=== PATIENT | female | born 1990 | race Caucasian/White ===

== ENCOUNTER 2017-01-19 22:24 | Outpatient (CLI) | payer OTHER ==
[~2017-01-19] VITALS: Ht 165.1 cm; Wt 107.3 kg
[~2017-01-19 22:24] MED LIST: IBUP-1542 PO; TRAM50TA2 PO
[2017-01-19 22:34] VITALS: Ht 165.1 cm; Wt 107.3 kg
[2017-01-19] MEDS ORDERED: PREN1TAB79 PO (22:37)
--- NOTE | 2017-01-19 23:35 | PN ---
Triage Information Date/Time Reason for visit: labor Weeks of Gestation 28 weeks and 3 days of gestation presents with contractions Patient reports recent intercourse Patient with history of one delivery at 30 weeks of gestation History of 1 full-term delivery History of SAB X one /Para 4 para 2 Diabetes: none Hypertention: none Objective Heart Rate: 140's Heart Rate Comments NST is reactive Contractions: None Results/Medications Imaging Results WNL Disposition: Discharge Assessment/Plan We will obtain cervical length and estimated weight UA and CBC We will obtain urine tox Prescription for Macrobid was given Patient to follow-up with [facility] in 2-3 days MARYJANE GAUTHIER MD Jan 19, 2017 23:35
[2017-01-20 00:28] LABS: BASOPHILS % 0.1 % (0.0-2.0); EOSINOPHILS # 0.1 10^3/ul (0.0-0.5); EOSINOPHILS % 1.2 % (0.0-7.0); HEMATOCRIT 31.8 % (37.0-47.0); HEMOGLOBIN 10.3 g/dl (12.0-16.0); LYMPHOCYTES # 2.2 10^3/ul (0.8-2.9); LYMPHOCYTES % 21.3 % (15.0-51.0); MEAN CORPUSCULAR HEMOGLOBIN 27.9 pg (29.0-33.0); MEAN CORPUSCULAR HGB CONC 32.4 g/dl (32.0-37.0); MEAN CORPUSCULAR VOLUME 86.2 fl (82.0-101.0); MEAN PLATELET VOLUME 10.8 fl (7.4-10.4); MONOCYTE # 0.7 10^3/ul (0.3-0.9); MONOCYTES % 6.4 % (0.0-11.0); NEUTROPHILS % 70.7 % (39.0-77.0); PLATELET COUNT 225 10^3/UL (140-415); RED BLOOD COUNT 3.69 10^6/ul (4.20-5.40); RED CELL DISTRIBUTION WIDTH 12.3 % (11.5-14.5); WHITE BLOOD COUNT 10.4 10^3/ul (4.8-10.8)
[2017-01-20 01:16] LABS: ADD UMIC YES; UR ASCORBIC ACID NEGATIVE (NEGATIVE); UR BACTERIA FEW /HPF (NONE SEEN); UR BILIRUBIN (Dip) NEGATIVE (NEGATIVE); UR BLOOD (Dip) NEGATIVE (NEGATIVE); UR CLARITY CLOUDY (CLEAR); UR COLOR YELLOW (YELLOW); UR GLUCOSE (Dip) NEGATIVE (NEGATIVE); UR KETONES (Dip) NEGATIVE (NEGATIVE); UR LEUKOCYTE ESTERASE (Dip) 3+ Leu/ul (NEGATIVE); UR MUCUS MANY /HPF (NONE SEEN); UR NITRITE (Dip) NEGATIVE (NEGATIVE); UR RBC 3 /HPF (0-5); UR SPECIFIC GRAVITY (Dip) 1.027 (1.003-1.030); UR SQUAMOUS EPITHELIAL CELL FEW /HPF (FEW); UR TOTAL PROTEIN (Dip) NEGATIVE (NEGATIVE); UR UROBILINOGEN (Dip) 2+ mg/dL (NEGATIVE)
--- NOTE | 2017-01-20 01:49 | TRIAGE ---
OB Triage Datetime Report Generated by CPN: 01/20/2017 01:49 Datetime: 01/20/2017 01:38 Stage of : OB Triage Datetime: 01/20/2017 00:42 Pain Assessment Pain Assessment Comments: pt. states her pain is 'a lot better' since drinking her first litre of water Datetime: 01/20/2017 00:38 Monitor Mode: External US Datetime: 01/20/2017 00:10 Stage of : OB Triage Datetime: 01/19/2017 23:30 Labor Evaluation Monitor Mode: External Pattern: Normal: <= 5 Contractions in 10 Minutes Contraction Comments: UNABLE TO RECONCILIATION MANAGER UC'S ON TOCO, BUT PT. STATES SHE STILL FEEL ABD DISCOMFORT Heart Rate FHR Baseline Rate: 150 FHR Baseline Changes: No Baseline Change Variability: Moderate 6-25 bpm Datetime: 01/19/2017 22:54 Contraction Comments: toco tested Datetime: 01/19/2017 22:52 Labor Evaluation Monitor Mode: Palpation Resting Tone [place]: Relaxed Contraction Comments: pt. stated she is currently having a uc, unable to palpate uc's abdominally Datetime: 01/19/2017 22:41 EGA: 28.3 Datetime: 01/19/2017 22:39 Stage of : OB Triage Assessment Type: Triage Time of Arrival: 01/19/2017 22:20 Arrived By: Wheelchair Arrived From: Home Chief Complaint: UC'S SINCE 22:00 Movement: Present Contractions: Irregular Time Contractions Began: 01/19/2017 22:00 Contractions: Q15MIN Rupture of Membranes: Denies Vaginal Bleeding: None Vaginal Discharge: Denies Recent Sexual Intercouse: Yes Abdominal Trauma: Not Applicable Patient Complaints: Contractions Time Provider Notified: 01/19/2017 23:15 Provider Notified: FAZILAT Initial Plan: EFM, CALL OB Maternal Assessment Level of Consciousness: Fully Conscious Headache: Denies Blurred Vision: No Respiratory Effort: Unlabored; Regular Rhythm; Equal Expansion Nausea/Vomiting: Denies RUQ Epigastric Pain: Denies Facial Edema: None Temperature Route: Oral Fall Risk Assessment History of Falling: (0) No Secondary Diagnosis: (0) No Ambulatory Aid: (0) Bedrest/Nurse Assist IV Therapy: (0) No Gait: (0) Normal/Bedrest/Immobile Mental Status: (0) Oriented to Own Ability Fall Score: 0 Fall Risk Score Definition: No Risk: No action required
[2017-01-20 01:53] LABS: BARBITURATES Negative (NEGATIVE); BENZODIAZEPINES Negative (NEGATIVE); CANNABINOIDS Negative (NEGATIVE); COCAINE Negative (NEGATIVE); OPIATES Negative (NEGATIVE)
== END 2017-01-20 01:45 | disposition home or self-care (01) ==
LOC: OBT 22:24 → L-D 22:26 → OBT 01-20 01:45
PROVIDERS: ATTEND Obstetrics & Gynecology
DX: O60.03 Preterm labor without delivery, third trimester (principal); Z3A.28 28 weeks gestation of pregnancy
CPT/HCPCS: 76815; 76817; 80307; 81001; 85025; 87086; Z7500; G0463

== ENCOUNTER 2017-03-06 12:51 | Outpatient (CLI) | payer OTHER ==
[~2017-03-06] VITALS: Ht 165.1 cm; Wt 120.0 kg
[~2017-03-06 12:51] MED LIST changes: -IBUP-1542 PO; +PREN1TAB79 PO; -TRAM50TA2 PO
[2017-03-06 13:42] VITALS: BP 114/58; PULSE 78; RESP 18
[2017-03-06 13:44] VITALS: Ht 165.1 cm; Wt 120.0 kg
[2017-03-06] MEDS ORDERED: MEPERIDINE 25 MG INJ IV ONE (14:30)
[2017-03-06] MEDS: LACTATED RINGER'S 1,000 ML IV SCH ×2 (14:49→17:42)
[2017-03-06] MEDS ORDERED: TERBUTALINE 1 MG/ML INJ SC ONE (17:30)
--- NOTE | 2017-03-06 18:49 | PN ---
Triage Information Date/Time March 06, 2017 Reason for visit: Weeks of Gestation 35 weeks plus /Para 4 para 2 AB 1 Diabetes: none Hypertention: none Additional information Here complaining of persistent back pain and periaortic uterine contractions Objective Vital Signs Date Time Temp Pulse Resp B/P Pulse Ox O2 Delivery O2 Flow Rate FiO2 03/06/17 13:42 97.6 78 18 114/58 98 Room Air Heart Rate: 150's Heart Rate Comments Reactive Exam Cervix is closed Results/Medications Medications Current Medications Lactated Ringer's (Lr) 1,000 ml @ 125 mls/hr Q8H IV Last administered on 03/06t 17:42; Admin Dose 125 MLS/HR; Start 03/06/17 at 14:30 Disposition: Discharge Assessment/Plan After receiving subcutaneous terbutaline subjective the patient felt slightly better Lower back pain abdominal binder was provided We will follow patient as outpatient NAJMA ESCOBAR MD Mar 06, 2017 18:49
--- NOTE | 2017-03-06 19:08 | TRIAGE ---
OB Triage Datetime Report Generated by CPN: 03/06/2017 19:08 Datetime: 03/06/2017 18:00 Heart Rate FHR Baseline Rate: 135 Monitor Mode: External US Variability: Moderate 6-25 bpm Accelerations: 15X15 Decelerations: None Category: Category I Pain Assessment Pain Scale: 6 Pain Presence: Intermittent Pain Type: Contraction Pain Location: Abdomen Pain Goal: 0 Pain Relief Measures: Comfort Measures Datetime: 03/06/2017 16:05 Stage of : OB Triage Labor Evaluation Frequency: 1-10 Monitor Mode: External Duration (sec)2399: 30-60 Pattern: Normal: <= 5 Contractions in 10 Minutes Resting Tone [place]: Relaxed Heart Rate FHR Baseline Rate: 135 Monitor Mode: External US Variability: Moderate 6-25 bpm Accelerations: 15X15 Decelerations: None Category: Category I Membrane Status: Intact Datetime: 03/06/2017 14:55 Labor Evaluation Frequency: X1 Monitor Mode: External Duration (sec)2399: 30-50 Pattern: Normal: <= 5 Contractions in 10 Minutes Resting Tone [place]: Relaxed Heart Rate FHR Baseline Rate: 135 Monitor Mode: External US Variability: Moderate 6-25 bpm Accelerations: 15X15 Decelerations: None Category: Category I Datetime: 03/06/2017 14:10 Stage of : OB Triage Labor Evaluation Frequency: irr Monitor Mode: External Duration (sec)2399: 40 Quality: Mild Pattern: Normal: <= 5 Contractions in 10 Minutes Resting Tone [place]: Relaxed Heart Rate FHR Baseline Rate: 145 Monitor Mode: Internal Scalp Electrode FHR Baseline Changes: No Baseline Change Variability: Moderate 6-25 bpm Accelerations: 15X15 Decelerations: None Category: Category I Membrane Status: Intact Datetime: 03/06/2017 13:52 Vaginal Exam Dilatation (cms): 0.0 Exam By: cubil rnc Vaginal Bleeding: None Cervix, Consistency: Firm Cervix, Position: Posterior Presentation 'A': Unable to Assess Datetime: 03/06/2017 13:48 Stage of : OB Triage Maternal Assessment Level of Consciousness: Fully Conscious DTR's/Clonus: DTRs 2+; No Clonus Headache: Denies Blurred Vision: No Respiratory Effort: Unlabored; Regular Rhythm; Equal Expansion Breath Sounds, Left: Clear and Equal Breath Sounds, Right: Clear and Equal Nausea/Vomiting: Denies RUQ Epigastric Pain: Denies Lower Extremities Edema: Bilateral Lower Extremities Degree: 1+ Upper Extremities Edema: None Degree: None Facial Edema: None Temperature Route: Oral Fall Risk Assessment History of Falling: (0) No Secondary Diagnosis: (0) No Ambulatory Aid: (0) Bedrest/Nurse Assist IV Therapy: (0) No Gait: (0) Normal/Bedrest/Immobile Mental Status: (0) Oriented to Own Ability Fall Score: 0 Fall Risk Score Definition: No Risk: No action required Monitor Mode: External Heart Rate FHR Baseline Rate: 135 Monitor Mode: External US Pain Assessment Pain Scale: 5 Pain Presence: Intermittent Pain Type: Contraction Pain Location: Abdomen Datetime: 03/06/2017 13:47 Time of Arrival: 03/06/2017 13:18 EGA: 35.0 Arrived By: Ambulatory Arrived From: Home Chief Complaint: contractions x2 days Movement: Present Time Contractions Began: 03/06/2017 12:00 Rupture of Membranes: Denies Vaginal Bleeding: None Vaginal Discharge: Denies Recent Sexual Intercouse: Denies Abdominal Trauma: Not Applicable Patient Complaints: Contractions Time Provider Notified: 03/06/2017 14:26 Provider Notified: DR. MCCORD Initial Plan: efm/ sve Datetime: 01/20/2017 00:30 Pattern: Normal: <= 5 Contractions in 10 Minutes Resting Tone [place]: Relaxed Heart Rate FHR Baseline Rate: 130 FHR Baseline Changes: No Baseline Change Variability: Moderate 6-25 bpm Accelerations: 10X10 Decelerations: None Datetime: 01/19/2017 22:41 EGA: 28.3 Datetime: 01/19/2017 22:39 Fall Score: 0 Fall Risk Score Definition: No Risk: No action required
== END 2017-03-06 19:35 | disposition home or self-care (01) ==
LOC: OBT 12:51 → L-D 12:53 → OBT 19:35
PROVIDERS: ATTEND Obstetrics & Gynecology
DX: O62.9 Abnormality of forces of labor, unspecified (principal); Z3A.35 35 weeks gestation of pregnancy
CPT/HCPCS: 96360; 96372; J2175; J3105; J7120; Z7500; G0463

== ENCOUNTER 2017-03-21 11:47 | Inpatient (IN) | payer OTHER ==
[~2017-03-21] VITALS: Ht 162.6 cm; Wt 120.0 kg
[2017-03-21 11:49] VITALS: BP 134/96; Ht 162.6 cm; Wt 120.0 kg
[2017-03-21] MEDS ORDERED: LACTATED RINGER'S 1,000 ML IV SCH ×2 (12:30→12:59)
--- NOTE | 2017-03-21 12:50 | TRIAGE ---
OB Triage Datetime Report Generated by CPN: 03/21/2017 12:50 Datetime: 03/21/2017 12:22 Labor Evaluation Frequency: 1-5 Monitor Mode: External Duration (sec)2399: 30-60 Pattern: Normal: <= 5 Contractions in 10 Minutes Resting Tone [place]: Relaxed Heart Rate FHR Baseline Rate: 145 Monitor Mode: External US Variability: Moderate 6-25 bpm Accelerations: 15X15 Decelerations: None Category: Category I Pain Assessment Pain Scale: 8 Pain Presence: Intermittent Pain Type: Contraction Pain Location: Abdomen Pain Goal: 0 Pain Relief Measures: Comfort Measures Datetime: 03/21/2017 12:03 Category: Category III Datetime: 03/21/2017 11:53 Stage of : OB Triage Assessment Type: Triage Maternal Assessment Level of Consciousness: Fully Conscious DTR's/Clonus: DTRs 2+; No Clonus Headache: Denies Blurred Vision: No Respiratory Effort: Unlabored; Regular Rhythm; Equal Expansion Breath Sounds, Left: Clear and Equal Breath Sounds, Right: Clear and Equal Nausea/Vomiting: Denies RUQ Epigastric Pain: Denies Lower Extremities Edema: Bilateral Lower Extremities Degree: Pitting Upper Extremities Edema: None Facial Edema: None Temperature Route: Oral Fall Risk Assessment History of Falling: (0) No Secondary Diagnosis: (0) No Ambulatory Aid: (0) Bedrest/Nurse Assist IV Therapy: (0) No Gait: (0) Normal/Bedrest/Immobile Mental Status: (0) Oriented to Own Ability Fall Score: 0 Fall Risk Score Definition: No Risk: No action required Labor Evaluation Frequency: X1 Monitor Mode: External Duration (sec)2399: 30-40 Pattern: Normal: <= 5 Contractions in 10 Minutes Resting Tone [place]: Relaxed Heart Rate FHR Baseline Rate: 145 Monitor Mode: External US Variability: Moderate 6-25 bpm Accelerations: 15X15 Category: Category I Pain Assessment Pain Scale: 8 Pain Presence: Intermittent Pain Type: Cramping; Contraction Pain Location: Abdomen Vaginal Exam Dilatation (cms): 4.0 Effacement (%): 70 Station: -2 Exam By: Ever COTTO Datetime: 03/21/2017 11:52 Time of Arrival: 03/21/2017 11:37 EGA: 37.1 Chief Complaint: UC'S SINCE 0500 Movement: Present Contractions: Regular Time Contractions Began: 03/21/2017 05:00 Contractions: 1-7 MIN Rupture of Membranes: Denies Vaginal Bleeding: None Vaginal Discharge: Denies Recent Sexual Intercouse: Denies Abdominal Trauma: Not Applicable Patient Complaints: Contractions Time Provider Notified: 03/21/2017 12:04 Provider Notified: DR. MCCORD Initial Plan: [id number] VE CALL MD Datetime: 03/06/2017 13:48 Fall Score: 0 Fall Risk Score Definition: No Risk: No action required Datetime: 03/06/2017 13:47 EGA: 35.0 Datetime: 01/19/2017 22:41 EGA: 28.3 Datetime: 01/19/2017 22:39 Fall Score: 0 Fall Risk Score Definition: No Risk: No action required
[2017-03-21] MEDS ORDERED: LIDOCAINE 1% (MPF) 30 ML INJ INJ PRN (13:00)
[2017-03-21] MEDS ORDERED: METHYLERGONOVINE 0.2 MG INJ IM PRN ×2 (13:00→17:30)
[2017-03-21] MEDS ORDERED: OXYTOCIN 30 UNITS/LR 500 ML IV SCH (13:00)
[2017-03-21] MEDS ORDERED: MISOPROSTOL 200 MCG TAB PR PRN ×2 (13:00→17:30)
[2017-03-21] MEDS ORDERED: BUTORPHANOL 2 MG INJ IV PRN ×2 (13:00)
[2017-03-21] MEDS ORDERED: LACTATED RINGER'S 1,000 ML IV PRN (13:00)
[2017-03-21] MEDS ORDERED: CARBOPROST 250 MCG INJ IM PRN ×2 (13:00→17:30)
[2017-03-21] MEDS ORDERED: OXYTOCIN 30 UNITS/LR 500 ML IV PRN ×2 (13:00→17:30)
[2017-03-21] MEDS ORDERED: EPHEDrine SULFATE 50 MG/5 ML SYG IV PRN (13:30)
[2017-03-21] MEDS ORDERED: NALOXONE (0.4 MG/ML) INJ IV PRN (13:30)
[2017-03-21] MEDS ORDERED: ONDANSETRON 4 MG INJ IV PRN (13:30)
[2017-03-21] MEDS ORDERED: FENTAnyl 2MCG/ML-ROPIV 0.2% 100 ML BAG EPI SCH (13:30)
[2017-03-21] MEDS ORDERED: MINERAL OIL LIGHT 10 ML VIAL TOP ONE (13:30)
[2017-03-21] MEDS ORDERED: FENTAnyl 2MCG/ML-ROPIV 0.2% 100 ML ONE (13:30)
[2017-03-21] MEDS ORDERED: DIPHENHYDRAMINE 50 MG INJ IV PRN (13:30)
[2017-03-21 13:34] LABS: BASOPHILS % 0.2 % (0.0-2.0); EOSINOPHILS # 0.1 10^3/ul (0.0-0.5); EOSINOPHILS % 0.5 % (0.0-7.0); HEMATOCRIT 37.4 % (37.0-47.0); HEMOGLOBIN 12.5 g/dl (12.0-16.0); LYMPHOCYTES # 1.6 10^3/ul (0.8-2.9); LYMPHOCYTES % 12.2 % (15.0-51.0); MEAN CORPUSCULAR HEMOGLOBIN 27.7 pg (29.0-33.0); MEAN CORPUSCULAR HGB CONC 33.4 g/dl (32.0-37.0); MEAN CORPUSCULAR VOLUME 82.7 fl (82.0-101.0); MEAN PLATELET VOLUME 11.6 fl (7.4-10.4); MONOCYTE # 0.6 10^3/ul (0.3-0.9); MONOCYTES % 4.8 % (0.0-11.0); NEUTROPHIL # 10.7 10^3/ul (1.6-7.5); NEUTROPHILS % 81.9 % (39.0-77.0); PLATELET COUNT 261 10^3/UL (140-415); RED BLOOD COUNT 4.52 10^6/ul (4.20-5.40); RED CELL DISTRIBUTION WIDTH 12.8 % (11.5-14.5)
[2017-03-21 13:46] LABS: INR 0.95; PROTIME 12.7 Sec (12.2-14.2)
[2017-03-21 13:47] LABS: PARTIAL THROMBOPLASTIN TIME 26.7 Sec (25.0-35.0)
[2017-03-21 13:48] LABS: ALANINE AMINOTRANSFERASE 21 IU/L (13-69); ALBUMIN 3.4 g/dl (3.3-4.9); ALBUMIN/GLOBULIN RATIO 0.87; ALKALINE PHOSPHATASE 144 IU/L (42-121); ANION GAP 13 (8-16); ASPARTATE AMINO TRANSFERASE 15 IU/L (15-46); BILIRUBIN,INDIRECT 0.4 mg/dl (0-1.1); BILIRUBIN,TOTAL 0.4 mg/dl (0.2-1.3); BLOOD UREA NITROGEN 14 mg/dl (7-20); CALCIUM 9.4 mg/dl (8.4-10.2); CARBON DIOXIDE 23 mmol/L (21-31); CHLORIDE 109 mmol/L (97-110); CREATININE 0.66 mg/dl (0.44-1.00); GLUCOSE 74 mg/dl (70-220); POTASSIUM 4.2 mmol/L (3.5-5.1); SODIUM 141 mmol/L (135-144); TOTAL PROTEIN 7.3 g/dl (6.1-8.1)
[2017-03-21] MEDS ORDERED: AMPICILLIN 2 GM/NS (PMX) 100 ML IV ONE (14:00)
[2017-03-21 14:45] LABS: ADD UMIC NO; UR ASCORBIC ACID NEGATIVE (NEGATIVE); UR BILIRUBIN (Dip) NEGATIVE (NEGATIVE); UR BLOOD (Dip) NEGATIVE (NEGATIVE); UR CLARITY CLEAR (CLEAR); UR COLOR YELLOW (YELLOW); UR GLUCOSE (Dip) NEGATIVE (NEGATIVE); UR KETONES (Dip) NEGATIVE (NEGATIVE); UR LEUKOCYTE ESTERASE (Dip) NEGATIVE Leu/ul (NEGATIVE); UR NITRITE (Dip) NEGATIVE (NEGATIVE); UR SPECIFIC GRAVITY (Dip) 1.021 (1.003-1.030); UR TOTAL PROTEIN (Dip) NEGATIVE (NEGATIVE); UR UROBILINOGEN (Dip) NEGATIVE (NEGATIVE)
--- NOTE | 2017-03-21 15:44 | HP ---
Date/Time of Note Date/Time of Note DATE: 03/21/17 TIME: 15:42 OB - History Hx of Present Free Text/Dictation Admitted in active labor at 37 weeks Last Menstrual Period: Jul 04, 2016 Estimated Due Date: Apr 10, 2017 : 4 Para: 2 Spontaneous : 0 Therapeutic : 1 Care: Good Care Ultrasounds: Normal mid trimester US Obstetrical Complications: None Medical Complications: None Past Family/Social History * Past Medical, Surgical, Family and Obstetric Histories reviewed from chart. Blood Type: B+ Rubella: immune RPR/VDRL: Negative GBS Status: Negative HBsAG: Negative OB Admission Exam Vital Signs Vital Signs Vital Signs Date Time Temp Pulse Resp B/P Pulse Ox O2 Delivery O2 Flow Rate FiO2 03/21/17 11:49 98.2 134/96 Room Air Physical Exam HEENT: WNL Heart: Rhythm Normal Lungs: Clear, Equal Abdomen: WNL Extremities: Normal Reflexes: Normal Cervical Dilatation: 4cm Effacement: 75% Station: -2 Membranes: Intact Heart Rate: 140's Accelerations: Accelerations Present Decelerations: No Decelerations Varibility: Marked Contractions on Admission: 6-10 Minutes Apart Date/Time Contractions Began: March 21, 2017, at 3:00 in the morning Frequency of Contractions: Every 7 minutes Duration: 60 seconds Intensity: Firm Last 72 hours Lab Results CBC & BMP 03/21/17 12:20 Liver Function Test 03/21/17 12:20 Alanine Aminotransferase (ALT/SGPT) 21 Albumin 3.4 Alkaline Phosphatase 144 H Aspartate Amino Transf (AST/SGOT) 15 Direct Bilirubin 0.00 Total Protein 7.3 OB Assessment/Plan Reason for admission: active labor Other Assessment: 37 weeks gestation Other plan: Proceed with labor Allow spontaneous labor to progress Vaginal delivery anticipated NAJMA ESCOBAR MD Mar 21, 2017 15:44
--- NOTE | 2017-03-21 15:46 | LDN ---
Date/Time of Note Date/Time of Note DATE: 03/21/17 TIME: 15:44 Delivery Summary Normal spontaneous vaginal delivery of a viable over intact perineum Weeks of Gestation 37 weeks plus Placenta Delivered: Spontaneously Meconium: none Episiotomy: No Perineal laceration: 0 Anesthesia type: Epidural Estimated blood loss: 300 Sponge & Needle done & correct: Yes All needle counts correct: Yes Any foreign bodies felt in the: No Problems: Delivery Information Sex Sex: male Apgars 1 Minute: 9 5 Minute: 9 Suctioning Nose & mouth suctioned at [place]: Yes Delee suction performed: No Umbilical Cord Umbilical cord with: 3 Vessels Cord presentations: no nuchal cord Cord Blood was obtained: Yes Mother & Baby Disposition Disposition Mom & Baby to Maternity; Good: Yes (7 mother and baby were recovered in good condition) Mom transferred to: Other (Maternity) Baby to NICU: No NAJMA ESCOBAR MD Mar 21, 2017 15:46
[2017-03-21] MEDS: OXYTOCIN 30 UNITS/LR 500 ML IV SCH ×2 (15:47→16:08)
[2017-03-21] MEDS: LACTATED RINGER'S 1,000 ML IV* SCH (17:28)
[2017-03-21] MEDS ORDERED: HYDROCODONE/APAP (5/325) TAB PO PRN ×2 (17:30)
[2017-03-21] MEDS ORDERED: ZOLPIDEM 5 MG TAB PO PRN (17:30)
[2017-03-21] MEDS ORDERED: WITCH HAZEL/GLYCERIN PAD PR PRN (17:30)
[2017-03-21] MEDS ORDERED: LANOLIN 7 GM TUBE TOP PRN (17:30)
[2017-03-21] MEDS ORDERED: DIBUCAINE 1% 30 GM OINT PR PRN (17:30)
[2017-03-21] MEDS ORDERED: BENZOCAINE 20% 56 ML SPRAY TOP PRN (17:30)
[2017-03-21 18:00] VITALS: BP 128/60; PULSE 70; RESP 16
[2017-03-21] MEDS ORDERED: AMPICILLIN 1 GM/NS (PMX) 50 ML IV SCH (18:00)
[2017-03-21] MEDS: IBUPROFEN 600 MG TAB PO SCH ×2 (18:00→23:57)
[2017-03-21] MEDS: CEPHALEXIN 500 MG CAP PO SCH ×2 (18:00→23:57)
[2017-03-21 19:02] VITALS: BP 119/55; PULSE 88; RESP 16
[2017-03-21 20:30] VITALS: BP 119/60; PULSE 86; RESP 18
[2017-03-21] MEDS: SENNA/DOCUSATE NA (8.6MG/50MG) TAB PO SCH (20:35)
[2017-03-21] MEDS: MAGNESIUM HYDROXIDE 30ML CUP PO SCH (20:36)
[2017-03-22] VITALS: BP 119/75; PULSE 78; RESP 17
[2017-03-22] MEDS: LACTATED RINGER'S 1,000 ML IV* SCH ×2 (01:28→09:28)
[2017-03-22 04:30] VITALS: BP 108/70; PULSE 75; RESP 17
[2017-03-22] MEDS: IBUPROFEN 600 MG TAB PO SCH ×2 (05:57→11:59)
[2017-03-22] MEDS: CEPHALEXIN 500 MG CAP PO SCH ×2 (05:57→11:58)
[2017-03-22 08:35] LABS: BASOPHILS % 0.2 % (0.0-2.0); EOSINOPHILS # 0.1 10^3/ul (0.0-0.5); EOSINOPHILS % 0.6 % (0.0-7.0); HEMATOCRIT 34.5 % (37.0-47.0); HEMOGLOBIN 11.3 g/dl (12.0-16.0); LYMPHOCYTES # 2.2 10^3/ul (0.8-2.9); LYMPHOCYTES % 17.6 % (15.0-51.0); MEAN CORPUSCULAR HEMOGLOBIN 27.6 pg (29.0-33.0); MEAN CORPUSCULAR HGB CONC 32.8 g/dl (32.0-37.0); MEAN CORPUSCULAR VOLUME 84.4 fl (82.0-101.0); MEAN PLATELET VOLUME 11.2 fl (7.4-10.4); MONOCYTE # 0.8 10^3/ul (0.3-0.9); MONOCYTES % 6.1 % (0.0-11.0); NEUTROPHIL # 9.4 10^3/ul (1.6-7.5); PLATELET COUNT 221 10^3/UL (140-415); RED BLOOD COUNT 4.09 10^6/ul (4.20-5.40); RED CELL DISTRIBUTION WIDTH 12.9 % (11.5-14.5); WHITE BLOOD COUNT 12.5 10^3/ul (4.8-10.8)
[2017-03-22] MEDS: SENNA/DOCUSATE NA (8.6MG/50MG) TAB PO SCH (08:41)
[2017-03-22] MEDS: MAGNESIUM HYDROXIDE 30ML CUP PO SCH (08:41)
[2017-03-22 08:55] VITALS: BP 102/63; PULSE 63; RESP 20
[2017-03-22] MEDS ORDERED: INFLUENZA VIRUS VACCINE 0.5 ML (DISPENSING) IM* ONE (10:00)
[2017-03-22 16:00] VITALS: BP 113/62; PULSE 63; RESP 20
--- NOTE | 2017-03-22 16:52 | DS ---
Date/Time of Note Date/Time of Note home today and or next day DATE: 03/22/17 TIME: 16:50 Obstetrical Discharge Record Final Diagnosis Final Diagnosis: Term delivered Other Final Diagnosis S/P vaginal delivery Vaginal Delivery Obstetrical Delivery: Spontaneous Condition on Discharge Physical Assessment Last Vitals: see nurses notes Voiding: Yes Bowel Movement: Yes Breast: Soft, non-tender, Filling Fundus: Firm Abdomen and Incision: soft BS + Episiotomy: N/A Calf Tenderness: No Patient Condition: Good NAJMA ESCOBAR MD Mar 22, 2017 16:52
--- NOTE | 2017-03-22 16:54 | PD.PPDC ---
[employer] Discharge Instruction Provider Information Physician Information 26 y/o female had vaginal delivery Diagnosis Final Diagnosis: S/P vaginal delivery Condition Patient Condition: Good Diet Diet: Resume Regular Diet Activity/Restrictions Activity: Normal Activity May Shower Restrictions: Nothing in the Vagina Return to Work or School: May 06, 2017 Follow-up Follow-up with Physician: 4, Week/Weeks (inclinic ) Return to clinic for OB Instructions: Breast Tenderness Depression Comment: pelvic rest X 6 weeks NAJMA ESCOBAR MD Mar 22, 2017 16:54
[2017-03-22] MEDS ORDERED: IBUP-1542 PO (16:55)
[2017-03-22] MEDS ORDERED: MEASLES,MUMPS,RUBELLA VACCINE INJ SC* ONE (17:00)
[2017-03-23] MEDS ORDERED: MEASLES,MUMPS,RUBELLA VACCINE INJ SC* ONE (09:00)
[2017-03-23] MEDS ORDERED: DIPHTH/TET/ACEL PERTUSS (ADULT) 0.5 ML VIAL IM* ONE (09:00)
[2017-03-23] MEDS ORDERED: VARICELLA VACCINE LIVE/PF 1,350 UNIT/0.5 ML ML SC* ONE (09:00)
== END 2017-03-22 18:01 | disposition home or self-care (01) | DRG 775 ==
LOC: OBT 11:47 → L-D 11:47 → OBT 13:04 → PP1 17:42
PROVIDERS: ADMIT Obstetrics & Gynecology; ATTEND Obstetrics & Gynecology
PROC: 10E0XZZ Delivery of Products of Conception, External Approach (ICD-10-PCS; principal; 2017-03-21)
PROC: 4A1HXCZ Monitoring of Products of Conception, Cardiac Rate, External Approach (ICD-10-PCS; 2017-03-21)
PROC: 3E0234Z Introduction of Serum, Toxoid and Vaccine into Muscle, Percutaneous Approach (ICD-10-PCS; 2017-03-22)
DX: O99.214 Obesity complicating childbirth (principal); Z68.42 Body mass index [BMI] 45.0-49.9, adult; E66.01 Morbid (severe) obesity due to excess calories; Z23 Encounter for immunization; Z37.0 Single live birth; Z3A.37 37 weeks gestation of pregnancy
CPT/HCPCS: 62319; 80053; 81003; 85025; 85610; 85730; 86592; 86900; 86901; 87340; 90686; 96360; 99464; G0463; J0290; J2590; J3010; J7120